=== PATIENT | male | born 1975 ===

== ENCOUNTER 2019-02-04 16:21 | Emergency (ER) | payer SELFPAY ==
[2019-02-04 16:22] VITALS: BMI 20.7
[2019-02-04] MEDS ORDERED: Alum-Mag Hydrox-Simethicone Susp (30 mL) PO STA (18:18)
[2019-02-04] MEDS ORDERED: Belladonna-Phenobarbital PO STA (18:19)
[2019-02-04 19:17] LABS: BASO % 0.4 % (0.0-2.0); EOS # 0.1 K/uL (0.0-0.7); EOS % 1.2 % (0.0-4.0); HEMOGLOBIN 15.8 g/dL (12.0-18.0); LYMPH # 1.5 K/uL (1.0-4.3); LYMPH % 16.1 % (20.0-40.0); MEAN CELL VOLUME 81.6 fl (80.0-94.0); MEAN CORPUSCULAR HEMOGLOBIN 27.2 pg (27.0-31.0); MEAN CORPUSCULAR HGB CONC 33.3 g/dL (33.0-37.0); MEAN PLATELET VOLUME 7.8 fl (7.2-11.7); MONO # 0.5 K/uL (0.0-0.8); MONO % 5.7 % (0.0-10.0); NEUT # 6.9 K/uL (1.8-7.0); NEUT % 76.6 % (50.0-75.0); NRBC % 0.1 % (0.0-0.0); RBC 5.82 Mil/uL (4.40-5.90); RED CELL DISTRIBUTION WIDTH 14.1 % (11.5-14.5); WHITE BLOOD COUNT 9.1 K/uL (4.8-10.8)
[2019-02-04] MEDS ORDERED: Alum-Mag Hydrox-Simethicone Susp (30 mL) ONE (19:20)
[2019-02-04 19:27] LABS: ALB/GLOB RATIO 1.4 (1.0-2.1); ALBUMIN 4.6 g/dL (3.5-5.0); ALT/SGPT 44 U/L (21-72); AMYLASE 120 U/L (30-110); AST/SGOT 36 U/L (17-59); BLOOD UREA NITROGEN 13 mg/dl (9-20); CALCIUM 10.1 mg/dL (8.4-10.2); GFR NON-AFRICAN AMERICAN > 60
--- NOTE | 2019-02-04 19:50 | ED PDOC ---
HPI: Chest Pain Time Seen by Provider: 02/04/19 18:00 Chief Complaint (Nursing): Chest Pain Chief Complaint (Provider): CP/COUGH History Per: Patient History/Exam Limitations: no limitations Onset/Duration Of Symptoms: Persistent Current Symptoms Are (Timing): Still Present Severity: Mild Pain Scale Rating Of: 5 Quality: Other (BURNING TO THE ESOPHAGUS ) Exacerbating Factors: Movement (OF ARMS ), Other Additional Complaint(s): 43 Y/O MALE PRESENTS TO THE ED C/O DRY COUGH FOR 7 MONTHS. PT REPORTS IT STARTED AFTER TAKING LISINOPRIL FOR BP. PT SINCE HAS BEEN TAKEN OFF LISINPRIL AND HAS HAD VARIOUS EXAMS AND STUDIES TO IDENTIFY CAUSE OF PERSISTENT COUGH. PT REPORTS HE CAME IN TODAY DUE TO INCREASE ESOPHAGEAL BURNING AND LEFT CHEST SIDED PRESSURE.PT DENIES SOB, FEVER. DIZZINESS, NAUSEA OR VOMITING. PT CURRENTLY TAKING "COUGH SYRUP" WITH NO RELIEF. Past Medical History Vital Signs: Last Vital Signs Temp 98.4 F 02/04/19 16:26 Pulse 78 02/04/19 16:26 Resp 16 02/04/19 16:26 BP 159/95 H 02/04/19 16:26 Pulse Ox 100 02/04/19 16:26 - Medical History PMH: HTN Denies: Chronic Kidney Disease - Surgical History Surgical History: No Surg Hx - Family History Family History: States: Unknown Family Hx - Social History Alcohol: None Drugs: Denies - Immunization History Hx Tetanus Toxoid Vaccination: No Hx Influenza Vaccination: Yes Hx Pneumococcal Vaccination: No - Home Medications Home Medications: Ambulatory Orders Medication Instructions Recorded Aspirin [Aspirin Chewable] 81 mg PO DAILY 04/27/18 amLODIPine [Norvasc] 10 mg PO DAILY 10/22/18 Albuterol Sulfate [Proventil Hfa] 6.7 gm IH Q4 30 Days #1 hfa.aer.ad 12/27/18 Losartan Potassium 100 mg PO DAILY 12/27/18 Metoprolol Succinate XL [Toprol XL] 100 mg PO DAILY 12/27/18 - Allergies Allergies/Adverse Reactions: Allergies Allergy/AdvReac Type Severity Reaction Status Date / Time nitroglycerin Allergy ANAPHYLAXIS Verified 02/04/19 16:26 JACQUELYN Risk Score for UA/NSTEMI - JACQUELYN Risk Score Age > 64: NO 3 or more CAD Risk Factors: NO Known CAD (Stenosis greater than 50%): NO Aspirin use in past 7 days: NO Severe Angina: NO EKG ST changes greater than 0.5mm: NO Positive Cardiac Marker: NO JACQUELYN Score: 0 Risk %: 5% Curb-65 Severity Score - CURB-65 Severity Score Confusion: No Bun >19mg/dl (>7mmol/L): No Respiratory Rate greater than/equal to 30: No Systolic BP <90 or Diastolic BP less than/equal 60mmHg: No Age >64: No Curb-65 Score: 0 Percentage 30-day mortality: 0.6% Wells Criteria for PE - Wells Criteria for Pulmonary Embolism Clinical Signs and Symptoms of DVT: No P.E is #1 Diagnosis, or Equally Likely: No Heart Rate >100: No Immobilization at least 3 days;Surgery previous 4 weeks: No Previous, objectively diagnosed PE or DVT: No Hemoptysis: No Malignancy w/treatment within 6 months, or palliative: No Total Score: 0 Review of Systems Constitutional: Negative for: Fever, Chills, Weakness ENT: Negative for: Nose Congestion, Throat Swelling Cardiovascular: Positive for: Chest Pain (LEFT SIDED RAD TO LEFT AXILLA ) Respiratory: Positive for: Cough (DRY COUGH FOR 7 MONTHS) Gastrointestinal: Positive for: Other (ESOPHAGEAL BURNING ). Negative for: Nausea, Vomiting Neurological: Negative for: Weakness Physical Exam - Reviewed Nursing Documentation Reviewed: Yes Vital Signs Reviewed: Yes - Physical Exam Appears: Positive for: Well, Non-toxic, No Acute Distress Head Exam: Positive for: ATRAUMATIC, NORMAL INSPECTION, NORMOCEPHALIC Skin: Positive for: Normal Color, Warm, DRY Eye Exam: Positive for: EOMI, Normal appearance, PERRL ENT: Positive for: Normal ENT Inspection Neck: Positive for: Normal, Painless ROM Cardiovascular/Chest: Positive for: Regular Rate, Rhythm Respiratory: Positive for: Normal Breath Sounds, Other (DRY COUGH NOTED, SPORATIC DRY COUGH NOTED. ) Pulses-Radial (L): 2+ Pulses-Radial (R): 2+ Gastrointestinal/Abdominal: Positive for: Normal Exam, Soft, Tenderness (+EPIGASTRIC TENDERNESS ) Back: Positive for: Normal Inspection Extremity: Positive for: Normal ROM Neurological/Psych: Positive for: Awake, Alert, Normal Tone, Oriented - Laboratory Results Result Diagrams: 02/04/19 19:10 02/04/19 19:10 Lab Results: Troponin I < 0.0120 ng/mL (0.00-0.120) 02/04/19 19:10 Total Bilirubin 1.0 mg/dl (0.2-1.3) 02/04/19 19:10 AST 36 U/L (17-59) 02/04/19 19:10 ALT 44 U/L (21-72) 02/04/19 19:10 Alkaline Phosphatase 105 U/L (38-126) 02/04/19 19:10 Total Protein 7.9 G/DL (6.3-8.2) 02/04/19 19:10 Albumin 4.6 g/dL (3.5-5.0) 02/04/19 19:10 Globulin 3.3 gm/dL (2.2-3.9) 02/04/19 19:10 Albumin/Globulin Ratio 1.4 (1.0-2.1) 02/04/19 19:10 Amylase 120 U/L (30-110) H 02/04/19 19:10 - ECG ECG Rhythm: Positive for: Normal QRS Interpretation Of ECG: DR. RODRIGUEZ O2 Sat by Pulse Oximetry: 100 Pulse Ox Interpretation: Normal - Progress ED Course And Treament: CBC CMP TROPONIN AMYLASE CXR GI COCKTAIL 1929: PT RE-EVALUATED AT THIS TIME, REPORTS ESOPHAGEAL BURNING HAS IMPROVED BUT CONTINUES TO HAVE COUGH. PT WAS MEDS FOR COUGH. PT ADVISED COUGH IS CHRONIC PROBLEM THAT WILL MOST LIKELY NOT BE ALLIVATED TODAY. PT HAS COUGH MEDICINE AT HOME THAT WAS PRESCRIBED ON 01/28. PT IS ALSO SCHEDULED FOR PFT TOMORROW. PT ADVISED TO COME TO HAVE TESTING DONE FOR FURTHER EVAL. NOTED PT AMYLASE IS 120. ENTERED FOR LIPASE AND CXR. 20:00 PT ENDORSED TO KETTY NOLASCO. LIPASE AND CXR FOLLOW-UP. Re-evaluation Time: 19:30 Condition: Re-examined Disposition - Clinical Impression Clinical Impression: Cough present for greater than 3 weeks - Disposition Disposition Time: 20:00 Condition: STABLE Forms: [employer] (Slovak) Patient Signed Over To: Ketty Dobson Handoff Comments: CXR AND LIPASE FOLLOW-UP
--- NOTE | 2019-02-04 21:31 | ED PDOC ---
- Laboratory Results Result Diagrams: 02/04/19 19:10 02/04/19 19:10 Lab Results: Troponin I < 0.0120 ng/mL (0.00-0.120) 02/04/19 19:10 Total Bilirubin 1.0 mg/dl (0.2-1.3) 02/04/19 19:10 AST 36 U/L (17-59) 02/04/19 19:10 ALT 44 U/L (21-72) 02/04/19 19:10 Alkaline Phosphatase 105 U/L (38-126) 02/04/19 19:10 Total Protein 7.9 G/DL (6.3-8.2) 02/04/19 19:10 Albumin 4.6 g/dL (3.5-5.0) 02/04/19 19:10 Globulin 3.3 gm/dL (2.2-3.9) 02/04/19 19:10 Albumin/Globulin Ratio 1.4 (1.0-2.1) 02/04/19 19:10 Amylase 120 U/L (30-110) H 02/04/19 19:10 Lipase 190 U/L (23-300) 02/04/19 21:03 - ECG O2 Sat by Pulse Oximetry: 100 - Radiology X-Ray: Viewed By Me X-Ray Interpretation: No Acute Disease - Progress ED Course And Treament: Case endorsed to assembly instructions writer from Lina ORANTES pending xray, labs, and re-eval Patient educated on findings (via voyce #[id number]), discharged with instructions to follow up with PMD Patient states 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
[2019-02-04 22:01] VITALS: BP 143/93; PULSE 60; RESP 14; TEMP 98.5; O2SAT 98
--- NOTE | 2019-02-05 09:01 | CARD ---
APPROVED REPORT Date of service: 02/04/2019 EKG Measurement Heart [id number] <Conclusion> Normal sinus rhythm with sinus arrhythmia Normal ECG
--- NOTE | 2019-02-05 15:53 | RAD ---
Date of service: 02/04/2019 HISTORY: COUGH COMPARISON: No prior. TECHNIQUE: Chest PA and lateral FINDINGS: LUNGS: No active pulmonary disease. PLEURA: No significant pleural effusion identified. No pneumothorax apparent. CARDIOVASCULAR: No aortic atherosclerotic calcification present. Normal cardiac size. No pulmonary vascular congestion. OSSEOUS STRUCTURES: No significant abnormalities. VISUALIZED UPPER ABDOMEN: Normal. OTHER FINDINGS: None. IMPRESSION: No active disease.
== END 2019-02-04 22:10 | disposition home or self-care (01) ==
LOC: H.ER 16:21
DX: R05 Cough (principal); R07.89 Other chest pain; I10 Essential (primary) hypertension